=== PATIENT | female | born 1980 | race Caucasian/White ===

== ENCOUNTER 2022-06-15 05:42 | Day surgery (SDC) | payer OTHER ==
[~2022-06-15] VITALS: Ht 185.4 cm; Wt 113.6 kg
--- NOTE | ~2022-06-15 | OR ---
[facility] [address], [place] [address] Draft DATE OF OPERATION: 06/15/2022 SURGEON: Avelina Mireles DO PREOPERATIVE DIAGNOSES: 1. Left ovarian dermoid cyst. 2. Abnormal uterine bleeding. 3. Obesity. POSTOPERATIVE DIAGNOSES: 1. Left ovarian dermoid cyst. 2. Abnormal uterine bleeding. 3. Endometrial polyps. 4. 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 5. Stage II endometriosis. 6. Obesity. PROCEDURES PERFORMED: 1. Laparoscopic left salpingo-oophorectomy. 2. Dilation and curettage. 3. Hysteroscopic polypectomy. MOTORCOACH OPERATOR: Angie Art D.O. ANESTHESIA: General. ESTIMATED BLOOD LOSS: 10 mL. SPECIMENS: 1. Left ovary and tube. 2. Endometrial polyps and curettings. DRAINS: Mcelroy to gravity. FINDINGS: Normal external genitalia with normal clitoris, urethral meatus, bilateral Earlton's, PATIENT NAME: DEBI DE LA FUENTE OPERATIVE REPORT DATE OF : 82 REPORT #: [id number] PHYSICIAN: AVELINA MIRELES (SANDRA) PCP: RADHA BAJWA MD REPORT IS CONFIDENTIAL AND NOT TO BE RELEASED WITHOUT AUTHORIZATION [facility] [address], [place] [address] Draft Bartholin's glands. Normal perineal body and anus. Normal vagina and cervix with excellent apical support. No masses. On laparoscopy, normal upper quadrants, enlarged fibroid uterus and bilateral complex ovarian masses consistent with prior surgical records. Filmy adhesions of the adnexa bilaterally and stage II endometriosis with powder burn lesions scattered throughout the lower abdomen and pelvic peritoneum, uterosacral ligament, and adnexa. The left infundibulopelvic ligament was divided and ligated with Endo-loop, and hemostatic and the course of the ureter followed well away from this pedicle with normal movement noted. On hysteroscopy, large central polyp and several scattered smaller polyps, endometrium thin appearing otherwise. FLUID DEFICIT: 530 mL. COMPLICATIONS: None. INDICATIONS: Mrs. De La Fuente is a pleasant 41-year-old female, who presented to the office, complaining of abnormal bleeding, dysmenorrhea, and persistent left ovarian cyst. Briefly, she underwent laparoscopic cystectomy at [facility] last summer that demonstrated bilateral serous cystadenoma. Previous ultrasounds demonstrated left dermoid cyst, but this was not removed. The patient reports her bleeding has become worse, and she is frustrating requesting definitive surgery with hysterectomy. Recommended hysteroscopy, D and C, and left ovarian cystectomy versus salpingo-oophorectomy. Risks, benefits, and alternatives were discussed in detail with the patient. The patient understands and wished to proceed with the procedure. DESCRIPTION OF PROCEDURE: The patient was taken to the operating room, where time-out was performed to confirm correct patient, correct procedure. General anesthesia was adequately established. The patient was prepped and draped in dorsal lithotomy position with feet in Yellofin stirrups. No antibiotics or heparin were indicated by preoperative scoring. Mcelroy catheter was inserted. The anterior lip of the cervix was grasped with an Allis clamp and a eefoof.comlka uterine manipulator was placed without difficulty. Mcelroy catheter was inserted. The surgeon's gloves were changed and attention was turned to the abdomen. Approximately 2 cm below the umbilicus, the skin was infiltrated with 0.25% Marcaine with epinephrine and a 2-4 cm curvilinear incision was made using 11 blade. The fascia was grasped with hemostats, elevated, and entered sharply with Metzenbaum scissors. Stay sutures of 0-Vicryl placed on the superior and inferior edges of the fascial incision. The peritoneum was entered bluntly and pneumoperitoneum was established after placing Katey operative port. Survey of the abdomen and pelvis was performed demonstrating normal upper quadrants, stage II endometriosis with scattered powder burn PATIENT NAME: DEBI DE LA FUENTE OPERATIVE REPORT DATE OF : [birth year] REPORT #: [id number] PHYSICIAN: AVELINA MIRELES (SANDRA) PCP: RADHA BAJWA MD REPORT IS CONFIDENTIAL AND NOT TO BE RELEASED WITHOUT AUTHORIZATION [facility] [address], [place] [address] Draft lesions extensively throughout the pelvic peritoneum, adnexal and uterosacral ligaments. Bilateral ovarian cysts with some filmy adhesions consistent with prior surgical history noted. A 5 mm hr assistant port was placed in the left lower quadrant under direct visualization without complication as well as another one in the right lower quadrant without complication. Attention was turned to the left adnexa. The left fallopian tube was grasped, elevated, and the filmy adhesions were dissected bluntly. The right infundibulopelvic ligament was identified and the left infundibulopelvic ligament was identified and the left ureter was also identified, noted to be well away from the IP. The pelvic peritoneum lateral to the infundibulopelvic ligament was opened isolating the IP, which was then fulgurated using the LigaSure device. Excellent hemostasis was appreciated. The ovary and tube were then elevated and retracted laterally, tied to expose the cornu in the left uteroovarian ligament. These were fulgurated and divided and the ovary and tube were freed. The left infundibulopelvic ligament was then grasped with a curved Alana grasper through an Endoloop device, which was then used to ligate the infundibulopelvic ligament with excellent results. The course of the ureter was again followed and again confirmed to be well away from the now ligated IP. Excellent hemostasis was appreciated. Close inspection of extensive peritoneal endometriosis was noted. The right ovary and cyst were evaluated and pictures taken. The pelvis was noted to be hemostatic. Then EndoCatch bag was then placed through the port. The tube and ovary placed inside the bag intact and was delivered through the infraumbilical incision and sent to Pathology without spillage, leakage, or other concern. Pneumoperitoneum was re-established and hemostasis was again confirmed. Pneumoperitoneum was reduced, trocars were removed and the infraumbilical fascia was reapproximated using 0-Vicryl in a running nonlocked manner. Skin was then reapproximated using 4-0 Monocryl on subcuticular stitch with excellent hemostasis and cosmesis. Attention was then turned to the hysteroscopy. Hulka retractor was removed and the cervix was gently dilated using Hegar dilators. The operative hysteroscope was then placed in the cervical os and advanced under direct visualization into the uterine cavity. Large central endometrial polyp was identified and bilateral tubal ostia were identified with an otherwise thin appearing endometrium. There were a few small scattered polyps, one in the right cornu and one at the fundus. MyoSure LITE device was selected and used to perform polypectomy and circumferential curettage of the endometrium. Specimens sent to Pathology for further evaluation. The hysteroscope was removed and hemostasis was appreciated. Fluid deficit was 530 mL. The patient was then taken to PACU in good and stable condition. Sponge, needle, and instrument count was correct x2 at the end of the procedure. Dr. Art was present and participated in all portions of the procedure. Given multi-fibroid uterus with continued abnormal bleeding, extensive endometriosis, and complex right ovarian masses previously biopsied and diagnosed as serous cystadenoma. We will recommend definitive treatment with total laparoscopic PATIENT NAME: DEBI DE LA FUENTE OPERATIVE REPORT DATE OF : 82 REPORT #: [id number] PHYSICIAN: AVELINA MIRELES) PCP: RADHA BAJWA MD REPORT IS CONFIDENTIAL AND NOT TO BE RELEASED WITHOUT AUTHORIZATION [facility] [address], [place] [address] Draft hysterectomy, right salpingo-oophorectomy with future hormone replacement in the near future. DO CRISTAL Bardales/MODL /[id number] Copies: ~ PATIENT NAME: DEBI DE LA FUENTE OPERATIVE REPORT DATE OF : 82 REPORT #: [id number] PHYSICIAN: AVELINA MIRELES) PCP: RADHA BAJWA MD REPORT IS CONFIDENTIAL AND NOT TO BE RELEASED WITHOUT AUTHORIZATION
[~2022-06-15 05:42] MED LIST: HYZAAR 100-251 EACH PO
[2022-06-15] MEDS ORDERED: SUDOGEST120 MG PO (06:01)
--- NOTE | 2022-06-15 09:33 | NUR ---
06/15/22 0933 Adela Staton 0914 PT ARRIVED IN PACU SLEEPY WITH NO C/O'S. ORNELAS CATHETER PRESENT WITH PALE YELLOW URINE. 931 RESTING. REU.
--- NOTE | 2022-06-15 10:11 | NUR ---
LE 1005: PT IS BACK TO DS FROM PACU. IS AT THE BEDSIDE. CALL LIGHT WITHIN REACH. WATER AND ICE CHIPS ON BEDSIDE TABLE. MINIMAL PAIN AT THIS TIME. ORNELAS IS REMOVED, BALLOON IS EMPTIED OF 9MLS OF NS. 200MLS OF BRIGHT YELLOW URINE IN ORNELAS BAG. NO ADDITIONAL NEEDS OR CONCERNS AT THIS TIME.
[2022-06-15] MEDS ORDERED: IBUPROFEN800 MG PO (10:25)
[2022-06-15] MEDS ORDERED: HYDROCODON-ACE1 EA10 PO (10:26)
--- NOTE | 2022-06-15 11:11 | NUR ---
PT REPORTS INTERMITTEN TOLERABLE PAIN. SHE WOULD LIKE SOME JUICE. SHE IS TOLERATING WATER. AT THE BEDSIDE. CALL LIGHT WITHIN REACH. WOULD LIKE TO GET UP TO TRY AND VOID. NO ADDITIONAL NEEDS OR CONCERNS.
--- NOTE | 2022-06-15 11:25 | NUR ---
LE 1115: PT IS ASSISTED UP OOB TO THE BATHROOM. SHE IS ABLE TO AMBULATE WITH STANDBY ASSISTANCE. SHE IS GIVEN MESH PANTIES AND A PERIPAD FOR VAGINAL DRAINAGE/BLEEDING.
--- NOTE | 2022-06-15 12:15 | NUR ---
PT IS DOING WELL, PAIN IS WELL UNCONTROL. SHE IS TOLERATING SOLIDS AND LIQUIDS. SHE HAS MET ALL DC CRITERIA AT THIS TIME. SHE WOULD LIKE TO NAP A LITTLE LONGER BEFORE GOING HOME. CALL LIGHT WITHIN REACH. NO ADDITIONAL NEEDS OR CONCERNS.
--- NOTE | 2022-06-15 14:17 | NUR ---
PAULETTE 1245: PT AND ARE GIVEN WRITTEN AND VERBAL DC INSTRUCTIONS. THEY BOTH VERBALIZE UNDERSTANDING. QUESTIONS ARE ASKED AND ANSWERED. PT IS TAKEN TO PERSONAL VEHICLE VIA WC, WHERE SHE IS ABLE TO TRANSFER HERSELF INDEPENDENTLY WITHOUT ISSUES.
--- NOTE | 2022-06-17 15:14 | PATH ---
[facility] [address] [place], [place] [address] Signed SPECIMEN(S): A LEFT FALLOPIAN TUBE AND OVARY SPECIMEN(S): B ENDOMETRIAL CURETTINGS AND POLYPS SPECIMEN SOURCE: A. LEFT FALLOPIAN TUBE AND OVARY B. ENDOMETRIAL CURETTINGS AND POLYPS CLINICAL HISTORY: Abnormal uterine bleeding and dermoid cyst, left ovary. Laparoscopic unilateral oophorectomy, hysteroscopy, DC. FINAL PATHOLOGIC DIAGNOSIS: A. Left fallopian tube and ovary: - Ovary containing benign cystic teratoma (dermoid cyst). - Segment of benign oviduct. B. Endometrial curettings and polyps: - Benign proliferative endometrium with focal polypoid features. - Negative for hyperplasia or atypia. JVR:laura:C2NR MICROSCOPIC EXAMINATION: Histologic sections of all submitted blocks are examined by light microscopy. These findings, together with the gross examination, support the pathologic diagnosis. GROSS DESCRIPTION: A. The specimen, labeled and designated "Leisa, left fallopian tube and ovary," is received in formalin and consists of a pink-archuleta ovary with attached portion of violaceous segment of fallopian tube. The second fallopian tube measures 4.5 x up to 1.1 cm. One end is fimbriated. The segment is serially sectioned. The ovary measures 6.0 x 4.7 x 3.0 cm. The ovary is serially sectioned and reveals a polycystic ovary. Bill Sorter sections are submitted as follows: Cassette Summary: (A1-A2) left fallopian tube (A3-A6) left ovary B. The specimen, labeled and designated "Young Harris, endometrial curettings and polyps," is received in formalin and consists of archuleta soft tissue and mucus material measuring in aggregate 3.0 x 3.0 x 0.5 cm. Entirely submitted in (B1-B2). (under the direct supervision of a pathologist) PATIENT NAME: DEBI NGUYEN PATHOLOGY DATE OF : 82 REPORT #: [id number] PHYSICIAN: DILLAN BURNETT PCP: RADHA BAJWA MD REPORT IS CONFIDENTIAL AND NOT TO BE RELEASED WITHOUT AUTHORIZATION [facility] [address] [place], [place] [address] Signed The Gross Description was prepared using a voice recognition system. The report was reviewed for accuracy; however, sound-alike word errors, addition and/or deletions may occur. If there is any question about this report, please contact Client Services. PERFORMING LABORATORY: The technical component was performed by [facility], [address] [place] [id number] (CLIA# [id number]). Professional interpretation was performed by [facility] - [facility], [address] [place] [id number] (CLIA#: [id number]). Diagnostician: Maninder Posada MD Pathologist Electronically Signed 06/17/2022 Copies: ~ PATIENT NAME: DEBI NGUYEN PATHOLOGY DATE OF : [birth year] REPORT #: [id number] PHYSICIAN: DILLAN BURNETT PCP: RADHA BAJWA MD REPORT IS CONFIDENTIAL AND NOT TO BE RELEASED WITHOUT AUTHORIZATION
== END 2022-06-15 12:50 | disposition home or self-care (01) ==
LOC: DS 05:42 → OPS 05:42 → DS 07:30 → OPS 07:30 → EDSTATUS 07:30 → OPS 12:50
PROVIDERS: ATTEND Obstetrics & Gynecology
PROC: 0UDB8ZZ Extraction of Endometrium, Via Natural or Artificial Opening Endoscopic (ICD-10-PCS; principal; 2022-06-15 07:30)
DX: D27.1 Benign neoplasm of left ovary (principal); N84.0 Polyp of corpus uteri; E66.9 Obesity, unspecified; N93.9 Abnormal uterine and vaginal bleeding, unspecified; N80.00 Endometriosis of the uterus, unspecified
CPT/HCPCS: J0131; J1100; J1885; J2250; J2405; J2704; J3010; J7121

== ENCOUNTER 2022-09-09 06:50 | Day surgery (SDC) | payer OTHER ==
[2022-09-02 14:57] VITALS: BP 131/86
[~2022-09-09] VITALS: Ht 185.4 cm; Wt 116.4 kg
[~2022-09-09 06:50] MED LIST changes: +HYDROCODON-ACE1 EA10 PO; +IBUPROFEN800 MG PO; +SUDOGEST120 MG PO
[2022-09-09 07:03] VITALS: BP 134/94
[2022-09-09] MEDS ORDERED: TUMS200 MG PO (07:07)
[2022-09-09 13:59] VITALS: BP 102/71
[2022-09-09 14:58] VITALS: BP 95/59
[2022-09-09 16:51] VITALS: BP 117/74
--- NOTE | 2022-09-13 15:31 | PATH ---
[facility] [address] [place], [place] [address] Signed SPECIMEN(S): A UTERUS, CERVIX, RIGHT FALLOPIAN TUBE SPECIMEN(S): B RIGHT PELVIC PERITONEAL MASS SPECIMEN(S): C PERITONEAL CAVITY SPECIMEN SOURCE: A. UTERUS, CERVIX, RIGHT FALLOPIAN TUBE B. RIGHT PELVIC PERITONEAL MASS C. PERITONEAL CAVITY CLINICAL HISTORY: Endometriosis, dysmenorrhea, abnormal uterine and vaginal bleeding, leiomyoma of uterus. Excision of extensive endometriosis. FINAL PATHOLOGIC DIAGNOSIS: A. Uterus, cervix, right fallopian tube: - Proliferative endometrium, negative for hyperplasia or atypia. - Benign endocervix and ectocervix. - Benign right oviduct. B. Right pelvic peritoneal mass: - Endometriosis with focal adjacent calcification and fat necrosis. C. Peritoneal cavity: - Endometriosis, benign. COMMENT: As part of [facility]' Quality Improvement Program, this case was reviewed by another member of our pathology staff. CATRACHITO:PHIL:jyothi:C2NR MICROSCOPIC EXAMINATION: Histologic sections of all submitted blocks are examined by light microscopy. These findings, together with the gross examination, support the pathologic diagnosis. GROSS DESCRIPTION: A. The specimen, labeled and designated "Gabe De La Fuente," and designated on the requisition "uterus, cervix, right fallopian tube," is received in formalin and consists of the uterus (267 g, 8.4 cm superior to inferior, 8.4 cm cornu to cornu, 5.8 cm anterior to posterior), attached cervix (3.0 cm in length x 3.4 cm in diameter) with archuleta-pink cervical mucosa and irregularly shaped os (0.7 x 0.3 cm). Also received is a detached fimbriated fallopian tube segment (7.8 cm in PATIENT NAME: DEBI DE LA FUENTE PATHOLOGY DATE OF : [birth year] REPORT #: [id number] PHYSICIAN: DILLAN PATHOLOGY PCP: RADHA BAJWA MD REPORT IS CONFIDENTIAL AND NOT TO BE RELEASED WITHOUT AUTHORIZATION [facility] [address] [place], [place] [address] Signed length and ranging in diameter from 0.5 to 1.4 cm). The fallopian tube segment is sectioned to reveal archuleta-pink to red-brown, soft cut surfaces. The fimbriae are submitted entirely. The uterine serosa is red-brown and smooth. Sectioning of the cervix reveals a archuleta-pink, wrinkled endocervix (endocervical canal: 2.6 cm in length x 1.5 cm in diameter). The endometrial cavity (6.0 cm superior to inferior x 4.5 cm cornu to cornu) contains red-pink endometrial lining that measures up to 0.5 cm in thickness. The myometrium is pink-archuleta and markedly trabeculated and measures up to 2.9 cm in thickness. No masses or lesions are grossly identified. Physiognomist sections are submitted. Cassette Summary: (A1-A2) Fallopian tube (A3) Cervix (A4) Endomyometrium B. The specimen, labeled and designated "LeisaAndreea," and designated on the requisition "right pelvic peritoneal mass," is received in formalin and consists of fragmented pieces of pink-archuleta, membranous tissue (2.0 x 1.3 x 0.3 cm) with attached brown-archuleta, disrupted, calcified nodule (1.4 x 1.1 x 0.7 cm). The specimen is inked blue and sectioned to reveal a yellow to brown-archuleta, gritty cut surface. The specimen is submitted entirely in cassette (B1). C. The specimen, labeled and designated "Armen De La Fuente," and designated on the requisition "endometriosis, peritoneal cavity," is received in formalin and consists of a fragment of archuleta-pink soft tissue (0.4 cm in greatest mention). The specimen is submitted entirely in cassette (C1). AC (under the direct supervision of a pathologist) The Gross Description was prepared using a voice recognition system. The report was reviewed for accuracy; however, sound-alike word errors, addition and/or deletions may occur. If there is any question about this report, please contact Client Services. PERFORMING LABORATORY: The technical component was performed by [facility], [address] [place] [id number] (CLIA# [id number]). Professional interpretation was performed by [facility] [address] [id number] (CLIA#: [id number]). Diagnostician: Maninder Posada MD PATIENT NAME: DEBI DE LA FUENTE PATHOLOGY DATE OF : [birth year] REPORT #: [id number] PHYSICIAN: [facility] PCP: RADHA BAJWA MD REPORT IS CONFIDENTIAL AND NOT TO BE RELEASED WITHOUT AUTHORIZATION [address] [address] Signed Pathologist Electronically Signed 09/13/2022 Copies: ~ PATIENT NAME: LEISADEBI JADE PATHOLOGY DATE OF : [birth year] REPORT #: [id number] PHYSICIAN: DILLAN BURNETT PCP: RADHA BAJWA MD REPORT IS CONFIDENTIAL AND NOT TO BE RELEASED WITHOUT AUTHORIZATION
--- NOTE | 2022-09-24 13:18 | OR ---
[facility] [address] [place], [place] [address] Signed DATE OF OPERATION: 09/09/2022 SURGEON: Avelina Mireles DO PREOPERATIVE DIAGNOSES: 1. Abnormal uterine bleeding. 2. Dysmenorrhea. 3. Endometriosis. 4. Obesity. POSTOPERATIVE DIAGNOSES: 1. Abnormal uterine bleeding. 2. Dysmenorrhea. 3. Endometriosis. 4. Obesity. PROCEDURES PERFORMED: 1. Total laparoscopic hysterectomy. 2. Right salpingectomy. 3. Excision and fulguration of endometriosis. 4. Cystoscopy. ANESTHESIA: General. EQUIPMENT OPERATOR/LABORER/SUPERVISOR: Angie Art DO. ESTIMATED BLOOD LOSS: 50cc COMPLICATIONS: None. FINDINGS: Normal appearance of the uterus. Status post left salpingo oophorectomy. Normal right ovary and right ovary with ovarian cyst, most consistent with endometriosis/endometrioma. In the pelvis, there are scattered endometriosis implants. These were excised completely. Cystoscopy showed normal bladder with bilateral ureteral jets. Electronically Signed By: AVELINA MIRELES DO (JD) 09/24/22 1318 PATIENT NAME: DEBI DE LA FUENTE OPERATIVE REPORT DATE OF : 82 REPORT #: [id number] PHYSICIAN: AVELINA MIRELES DO (JD) PCP: RADHA BAJWA MD REPORT IS CONFIDENTIAL AND NOT TO BE RELEASED WITHOUT AUTHORIZATION [address] [address] Signed COMPLICATIONS: None. DRAINS: Mcelroy to gravity. SPECIMENS: Uterus and cervix, right fallopian tube. INDICATIONS: Ms. De La Fuente is a pleasant 41-year-old G2, P1 female with abnormal uterine bleeding, dysmenorrhea and pain. She underwent a left salpingo-oophorectomy several months ago for a dermoid cyst. Endometriosis was noted at that procedure. The patient was consented for total laparoscopic hysterectomy, right salpingectomy, and cystoscopy with excision and fulguration of endometriosis. Risks, benefits, and alternatives were discussed in detail with the patient. Of note, patient declines blood transfusion due to concerns about possible donors receiving the COVID vaccination. PROCEDURE IN DETAIL: The patient was taken to the operating room. A time-out was performed to confirm correct patient and correct procedure. General anesthesia was adequately established. The patient was prepped and draped in the dorsal lithotomy position with her feet in Yellofin stirrups. ICPs were on a running and patient received Ancef 2 g preoperatively. A Mcelroy catheter was inserted. A weighted speculum was placed in the vagina and the anterior lip of the cervix was grasped with the Allis clamp. The cervix was dilated using Hegar dilators and a VCare uterine manipulator was placed without difficulty. Surgeon's gloves were changed. Attention was turned to the abdomen. Previous laparoscopic port sites were infiltrated with 0.25% Marcaine. A 3-4 cm curvilinear incision was made just inferior to the umbilicus. The subcu was dissected. The fascia was grasped, elevated, and entered sharply. Stay sutures of the fascia were placed superior and inferior with #0 Vicryl. The peritoneum was then entered bluntly and Katey trocar was placed without difficulty. Pneumoperitoneum was easily established with low opening pressure. Survey of the abdomen and pelvis was performed. A 5 mm assist port was placed in left lower quadrant under direct visualization without complication. An 8 mm expanding port was placed in the right lower quadrant under direct visualization without complication. Attention was then turned to the right adnexa. The right fallopian tube was grasped and the mesosalpinx was fulgurated and divided using LigaSure device. The tube was excised and sent to pathology for further evaluation. The right ovary was carefully examined. Normal-appearing ovary with a 3-4 cm cyst most consistent with endometrioma. Preoperatively, we had reviewed this and patient reported that she did not want any intervention that could lead to the ovary, Electronically Signed By: AVELINA BURCH) DO LELE 09/24/22 1318 PATIENT NAME: DEBI DE LA FUENTE OPERATIVE REPORT DATE OF : 82 REPORT #: [id number] PHYSICIAN: AVELINA MIRELES) PCP: RADHA BAJWA MD REPORT IS CONFIDENTIAL AND NOT TO BE RELEASED WITHOUT AUTHORIZATION [address] [address] Signed possibly being removed. Decision was made to leave ovary and ovarian cyst in situ. Attention was then turned to the utero-ovarian ligament. This was fulgurated and divided. The round ligament on the right was fulgurated and divided. The leaves of the broad ligament were . The anterior leaf was dissected down to the angle of the vaginal cup and carried across the superior margin. The posterior leaf was dissected to the angle of the uterosacral ligament and posterior along the edge of the vaginal cuff. The process was repeated on the left with fulguration, division of the round ligament and leaves of the broad ligament. The uterine vessels were identified, fulgurated and divided bilaterally with excellent hemostasis. Colpotomy was then performed using the Sonicision device and the uterus and cervix were delivered through the vagina and sent to pathology for further evaluation. Pneumoperitoneum was re-established by stuffing the vagina with a wet lap inside of a surgical glove. The colpotomy was irrigated and found to be hemostatic. Colpotomy was then repaired using V-Loc suture with an Endostitch device with careful attention to incorporate the uterosacral ligaments bilaterally and to incorporate the vaginal epithelium with each bite. Excellent hemostasis and apical support was appreciated. Attention was then turned to excision of endometriosis. There was a large endometrial implant on the right pelvic sidewall. This was carefully grasped, elevated, and undermined using the LigaSure device and excised without difficulty and sent to pathology for further evaluation. There were a few other small peritoneal lesions that were fulgurated. Pneumoperitoneum was then reduced and trocars were removed. The infraumbilical fascia was reapproximated with #0 Vicryl in a running nonlocked manner. This was reenforced with ligation of the previously placed stay sutures. The skin was reapproximated with 4-0 Monocryl. Attention was then turned to cystoscopy. The Mcelroy catheter was removed and a 70-degree cystoscope was placed in the urethral meatus and advanced under direct visualization into the bladder. Normal urethra and bladder with intact bladder dome noted. Bilateral ureteral jets were appreciated. The bladder was drained. Mcelroy catheter was reinserted and the patient was taken to the PACU in good and stable condition. Sponge, needle, and instrument counts were correct x2 at the end the procedure. Dr. Art was present and participated in all portions of procedure. Avelina Mireles DO JMARYLU/RADHAL /[id number] Electronically Signed By: QUAN (JD) MIRELES, DO 09/24/22 1318 PATIENT NAME: DEBI DE LA FUENTE OPERATIVE REPORT DATE OF : [birth year] REPORT #: [id number] PHYSICIAN: AVELINA MIRELSE DO (JD) PCP: RADHA BAJWA MD REPORT IS CONFIDENTIAL AND NOT TO BE RELEASED WITHOUT AUTHORIZATION [address] [place], [place] [address] Signed Copies: ~ Electronically Signed By: AVELINA MIRELES (JD), DO 09/24/22 1318 PATIENT NAME: DEBI DE LA FUENTE OPERATIVE REPORT DATE OF : 82 REPORT #: [id number] PHYSICIAN: AVELINA MIRELES DO (JD) PCP: RADHA BAJWA MD REPORT IS CONFIDENTIAL AND NOT TO BE RELEASED WITHOUT AUTHORIZATION
== END 2022-09-09 18:05 | disposition home or self-care (01) ==
LOC: DS 06:50
PROVIDERS: ATTEND Obstetrics & Gynecology
PROC: 0UT54ZZ Resection of Right Fallopian Tube, Percutaneous Endoscopic Approach (ICD-10-PCS; 2022-09-09)
PROC: 0UB94ZZ Excision of Uterus, Percutaneous Endoscopic Approach (ICD-10-PCS; 2022-09-09)
PROC: 0UT94ZZ Resection of Uterus, Percutaneous Endoscopic Approach (ICD-10-PCS; principal; 2022-09-09 09:15)
PROC: 0DBW4ZZ Excision of Peritoneum, Percutaneous Endoscopic Approach (ICD-10-PCS; 2022-09-09 09:15)
DX: N80.30 Endometriosis of pelvic peritoneum, unspecified (principal); D25.9 Leiomyoma of uterus, unspecified; N93.9 Abnormal uterine and vaginal bleeding, unspecified; Z53.1 Procedure and treatment not carried out because of patient's decision for reasons of belief and group pressure; Z20.822 Contact with and (suspected) exposure to COVID-19; N83.209 Unspecified ovarian cyst, unspecified side
CPT/HCPCS: 00840; 88305; 88307; A9270; C9803; J0131; J0330; J0690; J0780; J1100; J1170; J1885; J2001; J2250; J2405; J2704; J3010; J7120; J7121; U0003